=== PATIENT | male | born 1965 | race African-American/Black ===

== ENCOUNTER 2016-12-07 22:21 | Emergency (ER) | payer OTHER ==
[~2016-12-07] VITALS: Ht 172.7 cm; Wt 80.0 kg
[~2016-12-07 22:21] MED LIST: OMEP20TA PO; TAB-TAB PO
[2016-12-07 23:34] VITALS: BP 123/88; PULSE 61; RESP 18; TEMP 97.8; O2SAT 100
--- NOTE | 2016-12-08 02:22 | PD ---
HPI Chief Complaint: Pain: Acute or Chronic Time Seen by Provider: 02:13 Travel History International Travel<30 days: No Contact w/Intl Traveler<30days: No Traveled to known affect area: No History of Present Illness HPI The patient is a 50-year-old male who complains of pain from his left lumbosacral area that radiates to the top of the knee for about 1-1/2 weeks. He went to the [facility] urgent care center and was given Motrin and a muscle relaxant, likely Robaxin, but it did not help. He is on his feet all day at work, he works maintenance. He denies any bladder or bowel dysfunction he denies any numbness or weakness of his left leg. 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) Patient Takes Glucophage: No Diminished Hearing: No Tetanus Vaccination: < 5 Years Influenza Vaccination: No Past Surgical History Surgical History: No Previous Surgery Social History Alcohol Use: Yes (OCCASIONALLY) Tobacco Use: No Substance Use: No Allergies-Medications (Allergen,Severity, Reaction): Coded Allergies: Sulfa (Verified Allergy, Severe, swollen tongue, 05/14/13) Reported Meds & Prescriptions Reported Meds & Active Scripts Active Lortab (Hydrocodone-Acetaminophen) 5-325 Mg Tab 1 Tab PO Q6H PRN Flexeril (Cyclobenzaprine HCl) 10 Mg Tab 10 Mg PO TID Reported Multivitamin (Multivitamins) 1 Tab Tab 1 Tab PO DAILY Review of Systems Except as stated in HPI: all other systems reviewed are Neg Physical Exam Narrative GENERAL: The patient is alert, oriented 3 and slight apparent distress with his left leg/back pain. His vital signs are normal. SKIN: Warm and dry. HEAD: Atraumatic. Normocephalic. EYES: Pupils equal and round. No scleral icterus. No injection or drainage. ENT: No nasal bleeding or discharge. Mucous membranes pink and moist. NECK: Trachea midline. No JVD. CARDIOVASCULAR: Regular rate and rhythm. No murmur appreciated. RESPIRATORY: No accessory muscle use. Clear to auscultation. Breath sounds equal bilaterally. GASTROINTESTINAL: Abdomen soft, non-tender, nondistended. Hepatic and splenic margins not palpable. MUSCULOSKELETAL: No obvious deformities. No clubbing. No cyanosis. No edema. Straight leg raising is normal, deep tendon reflexes are +2 bilaterally both patella and Achilles and pinprick is normal. No muscle wasting is seen. NEUROLOGICAL: Awake and alert. No obvious cranial nerve deficits. Motor grossly within normal limits. Normal speech. PSYCHIATRIC: Appropriate mood and affect; insight and judgment normal. Data Data Last Documented VS Vital Signs Date Time Temp Pulse Resp B/P Pulse Ox O2 Delivery O2 Flow Rate FiO2 12/08/16 03:31 64 18 122/82 99 Room Air 12/07/16 23:34 97.8 Orders Spine, Lumbar Comp W/Obliq (12/08/16 02:22) Ketorolac Inj (Toradol Inj) (12/08/16 02:30) Promethazine Inj (Phenergan Inj) (12/08/16 02:30) MDM Medical Decision Making Medical Screen Exam Complete: Yes Emergency Medical Condition: Yes Medical Record Reviewed: Yes Interpretation(s) X-rays the lumbar spine show mild lower lumbar degenerative changes but no fracture or subluxation. Differential Diagnosis Lumbar radiculopathy, herniated nucleus pulposus, acute lumbar strain, arthritis left hip Narrative Course The patient has lumbar radiculopathy. His pain appears to be coming from the back and radiating down to his left knee. He needs rest but he does not want a work excuse. He wants to work anyway. He is to follow-up with his primary care physician. He will be given Lortab and Flexeril. He should not drink alcohol or drive on either medication. Diagnosis Primary Impression: Lumbar radiculopathy Additional Instructions: You will need to follow-up with your primary care physician. Hopefully he can see him next week. Do not drink alcohol or drive on the Flexeril or Lortab 5. Med/Other Pt SpecificInfo: Prescription(s) given Scripts Hydrocodone-Acetaminophen (Lortab)5-325 Mg Tab1 Tab PO Q6H PRN (PAIN) #30 TAB Ref 0 Prov:Omari Hines MD 12/08/16 Cyclobenzaprine (Flexeril)10 Mg Tab10 Mg PO TID #30 TAB Ref 0 Prov:Omari Hines MD 12/08/16 Disposition: 01 DISCHARGE HOME Condition: Stable Omari Hines MD Dec 08, 2016 02:22
[2016-12-08] MEDS ORDERED: KETOROLAC TROMETHAMINE 60 MG/2 ML (IM) VIAL IM ONE (02:30)
[2016-12-08] MEDS ORDERED: PROMETHAZINE INJ 25 MG/ML VIAL IM ONE (02:30)
[2016-12-08] MEDS ORDERED: CYCL1TAB29 PO (02:36)
[2016-12-08] MEDS ORDERED: HYDR-3533 PO (02:36)
--- NOTE | 2016-12-08 03:19 | RADHPO ---
EXAM DATE/TIME: 12/08/2016 02:32 [facility] COMPARISON: No previous studies available for comparison. INDICATIONS : Lumbar spine pain that is irradiating into left hip. MEDICAL HISTORY : None. SURGICAL HISTORY : None. ENCOUNTER: Initial ACUITY: 1 week PAIN SCORE: 5/10 LOCATION: Bilateral lumbar spine FINDINGS: No fracture or subluxation of the lumbar spine. Vertebral bodies have normal height. Mild disc space narrowing and mild bilateral facet osteoarthritis seen at L4/L5 and L5/S1. CONCLUSION: Mild lower lumbar degenerative changes. No fracture or subluxation. Noble Martínez MD on December 08, 2016 at 3:16 Board Certified Radiologist. This report was verified electronically.
[2016-12-08 03:31] VITALS: BP 122/82; PULSE 64; RESP 18; O2SAT 99
== END 2016-12-08 03:47 | disposition home or self-care (01) ==
LOC: PHED 22:21
DX: M54.16 Radiculopathy, lumbar region (principal); Z79.899 Other long term (current) drug therapy; E11.9 Type 2 diabetes mellitus without complications
CPT/HCPCS: 72110; 96372; 99283; J1885; J2550

== ENCOUNTER 2017-11-27 17:38 | Emergency (ER) | payer OTHER ==
[~2017-11-27] VITALS: Ht 172.7 cm; Wt 78.0 kg
[~2017-11-27 17:38] MED LIST changes: +CYCL10TA PO; +HYDR-3533 PO; -OMEP20TA PO
[2017-11-27 17:46] VITALS: BP 147/96; PULSE 72; RESP 16; TEMP 98.7; O2SAT 99
--- NOTE | 2017-11-27 18:27 | PD ---
HPI Chief Complaint: chest pain Time Seen by Provider: 18:17 Travel History International Travel<30 days: No Contact w/Intl Traveler<30days: No Traveled to known affect area: No History of Present Illness HPI 51yo M with PMH of gastritis and pancreatitis here with c/o midsternal chest pain for 2 days. Said it starts epigastric region and is burning and radiates up mid chest. Feels like his reflux but took over the counter medication and it did not help. [place] warm but no documented fever. Denies any sob, n/v, abdominal pain, dysuria, hematuria, weakness or numbness. 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) Diminished Hearing: No Social History Alcohol Use: Yes (OCCASIONALLY) Tobacco Use: No Substance Use: No Allergies-Medications (Allergen,Severity, Reaction): Coded Allergies: Sulfa (Sulfonamide Antibiotics) (Unverified Allergy, Severe, swollen tongue, 11/27/17) Reported Meds & Prescriptions Reported Meds & Active Scripts Active Lortab (Hydrocodone-Acetaminophen) 5-325 Mg Tab 1 Tab PO Q6H PRN Flexeril (Cyclobenzaprine HCl) 10 Mg Tab 10 Mg PO TID Reported Multivitamin (Multivitamins) 1 Tab Tab 1 Tab PO DAILY Review of Systems Except as stated in HPI: all other systems reviewed are Neg Physical Exam Narrative GENERAL: 51yo M not in distress. SKIN: Focused skin assessment warm/dry. HEAD: Atraumatic. Normocephalic. EYES: Pupils equal and round. No scleral icterus. No injection or drainage. ENT: No nasal bleeding or discharge. Mucous membranes pink and moist. NECK: Trachea midline. No JVD. CARDIOVASCULAR: Regular rate and rhythm. No murmur appreciated. RESPIRATORY: No accessory muscle use. Clear to auscultation. Breath sounds equal bilaterally. GASTROINTESTINAL: Abdomen soft, non-tender, nondistended. No rebound tenderness or guarding. MUSCULOSKELETAL: No obvious deformities. No clubbing. No cyanosis. No edema. NEUROLOGICAL: Awake and alert. No obvious cranial nerve deficits. Motor grossly within normal limits. Normal speech. PSYCHIATRIC: Appropriate mood and affect; insight and judgment normal. Data Data Last Documented VS Vital Signs Date Time Temp Pulse Resp B/P (MAP) Pulse Ox O2 Delivery O2 Flow Rate FiO2 11/27/17 19:02 14 11/27/17 18:41 69 140/93 (109) 98 Room Air 11/27/17 17:46 98.7 Orders Orders Electrocardiogram (11/27/17 18:24) Basic Metabolic Panel (Bmp) (11/27/17 18:24) Complete Blood Count With Diff (11/27/17 18:24) Magnesium (Mg) (11/27/17 18:24) Prothrombin Time / Inr (Pt) (11/27/17 18:24) Act Partial Throm Time (Ptt) (11/27/17 18:24) Troponin I (11/27/17 18:24) Chest, Single Ap (11/27/17 18:24) Pantoprazole (Protonix) (11/27/17 18:30) Lipase (11/27/17 18:24) Al-Mag Hy-Si 40-40-4 Mg/Ml Liq (Mag-Al P (11/27/17 19:45) Lidocaine 2% Viscous (Xylocaine 2% Visco (11/27/17 19:45) Labs Laboratory Tests Test 11/27/17 18:48 White Blood Count 6.0 TH/MM3 Red Blood Count 5.56 MIL/MM3 Hemoglobin 13.6 GM/DL Hematocrit 43.7 % Mean Corpuscular Volume 78.5 FL Mean Corpuscular Hemoglobin 24.4 PG Mean Corpuscular Hemoglobin Concent 31.0 % Red Cell Distribution Width 13.5 % Platelet Count 357 TH/MM3 Mean Platelet Volume 7.3 FL Neutrophils (%) (Auto) 52.3 % Lymphocytes (%) (Auto) 36.4 % Monocytes (%) (Auto) 10.3 % Eosinophils (%) (Auto) 0.6 % Basophils (%) (Auto) 0.4 % Neutrophils # (Auto) 3.2 TH/MM3 Lymphocytes # (Auto) 2.2 TH/MM3 Monocytes # (Auto) 0.6 TH/MM3 Eosinophils # (Auto) 0.0 TH/MM3 Basophils # (Auto) 0.0 TH/MM3 CBC Comment AUTO DIFF Differential Comment AUTO DIFF CONFIRMED Platelet Estimate NORMAL Platelet Morphology Comment NORMAL Prothrombin Time 10.7 SEC Prothromb Time International Ratio 1.1 RATIO Activated Partial Thromboplast Time 23.5 SEC Blood Urea Nitrogen 17 MG/DL Creatinine 0.96 MG/DL Random Glucose 110 MG/DL Calcium Level 9.3 MG/DL Magnesium Level 2.2 MG/DL Sodium Level 136 MEQ/L Potassium Level 3.9 MEQ/L Chloride Level 102 MEQ/L Carbon Dioxide Level 30.9 MEQ/L Anion Gap 3 MEQ/L Estimat Glomerular Filtration Rate 100 ML/MIN Troponin I LESS THAN 0.02 NG/ML Lipase 278 U/L [facility] Medical Decision Making Medical Screen Exam Complete: Yes Emergency Medical Condition: Yes Interpretation(s) EKG: NSR 70bpm. Normal axis. No significant ST segment elevation or depression Differential Diagnosis GERD vs. atypical chest pain vs. peptic ulcer disease vs. gastritis Narrative Course 51yo M with epigastric, burning pain that radiates up chest. Really sounds more GI than cardiac. Labs reviewed, no leukocytosis. H/H normal. Troponin negative. Lipase normal. CXR negative. Pt given protonix, and GI cocktail. Pt reevaluated and said pain had completely resolved. It had felt like his gastritis. Pt has GI doctor to follow up with. Do not think this is cardiac. Return precautions given. Diagnosis Primary Impression: Gastritis Qualified Codes: K29.00 - Acute gastritis without bleeding Patient Instructions: General Instructions Departure Forms: Tests/Procedures Additional Instructions: Please follow up with your GI physician in 2-3 days. Return to the ED if symptoms worsen. Med/Other Pt SpecificInfo: Prescription(s) given Scripts Omeprazole (Omeprazole) 40 Mg Cap 40 MG PO DAILY, #15 CAP 0 Refills Prov: Sita Braun 11/27/17 Disposition: 01 DISCHARGE HOME Condition: Stable BraunLashawn maciaschris COLON Nov 27, 2017 18:27
[2017-11-27] MEDS ORDERED: PANTOPRAZOLE SOD 40 MG DELAYED RELEASE TAB PO ONE (18:30)
[2017-11-27 18:41] VITALS: BP 140/93; PULSE 69; RESP 18; O2SAT 98
--- NOTE | 2017-11-27 18:55 | RADRPT ---
EXAM DATE/TIME: 11/27/2017 18:27 [facility] COMPARISON: No previous studies available for comparison. INDICATIONS : Chest pain. MEDICAL HISTORY : Gastroesophageal reflux disease. SURGICAL HISTORY : None. ENCOUNTER: Initial ACUITY: 1 day PAIN SCORE: 5/10 LOCATION: chest FINDINGS: A single view of the chest demonstrates the lungs to be symmetrically aerated without evidence of mas s, infiltrate or effusion. The cardiomediastinal contours are unremarkable. Osseous structures are intact. CONCLUSION: No acute disease. Gautam Fallon MD on November 27, 2017 at 18:52 Board Certified Radiologist. This report was verified electronically.
[2017-11-27 18:57] LABS: AUTOMATED NEUTROPHIL # 3.2 TH/MM3 (1.8-7.7); BASOPHIL % 0.4 % (0.0-2.0); EOSINOPHIL % 0.6 % (0.0-4.0); HEMATOCRIT 43.7 % (39.0-51.0); HEMOGLOBIN 13.6 GM/DL (13.0-17.0); LYMPH % 36.4 % (9.0-44.0); LYMPHOCYTE # 2.2 TH/MM3 (1.0-4.8); MEAN CELL VOLUME 78.5 FL (80.0-100.0); MEAN CORPUSCULAR HEMOGLOBIN 24.4 PG (27.0-34.0); MEAN PLATELET VOLUME 7.3 FL (7.0-11.0); MONO % 10.3 % (0.0-8.0); MONOCYTE # 0.6 TH/MM3 (0-0.9); NEUT % 52.3 % (16.0-70.0); PLATELET COUNT 357 TH/MM3 (150-450); RED BLOOD COUNT 5.56 MIL/MM3 (4.50-5.90); RED CELL DISTRIBUTION WIDTH 13.5 % (11.6-17.2)
[2017-11-27 19:02] LABS: CHLORIDE 102 MEQ/L (98-107); SODIUM (NA) 136 MEQ/L (136-145)
[2017-11-27 19:04] LABS: CALCIUM 9.3 MG/DL (8.5-10.1)
[2017-11-27 19:05] LABS: BICARBONATE 30.9 MEQ/L (21.0-32.0); BLOOD UREA NITROGEN 17 MG/DL (7-18); GLUCOSE,RANDOM 110 MG/DL (74-106); MAGNESIUM 2.2 MG/DL (1.5-2.5)
[2017-11-27 19:08] LABS: CREATININE 0.96 MG/DL (0.60-1.30); GLOMERULAR FILTRATION RATE 100 ML/MIN (>89); INTERNATIONAL NORMALIZED RATIO 1.1 RATIO; PROTHROMBIN TIME - PATIENT 10.7 SEC (9.8-11.6)
[2017-11-27 19:13] LABS: TROPONIN I LESS THAN 0.02 NG/ML (0.02-0.05)
[2017-11-27 19:45] VITALS: BP 119/76; PULSE 68; RESP 16; O2SAT 98
[2017-11-27] MEDS ORDERED: ALUMINUM/MAGNESIUM/SIMETH 30 ML CUP PO ONE (19:45)
[2017-11-27] MEDS ORDERED: LIDOCAINE VISCOUS 2% SOLN 15 ML UDC PO ONE (19:45)
[2017-11-27] MEDS ORDERED: OMEP40CA2 PO (20:27)
[2017-11-27 20:40] VITALS: BP 125/79; PULSE 68; RESP 16; O2SAT 98
--- NOTE | 2017-11-28 05:23 | EKG ---
Date Performed: 11/27/2017 Time Performed: 18:33:47 PTAGE: 51 years EKG: Baseline artifact present Sinus rhythm PROBABLE EARLY REPOLARIZATION BORDERLINE ECG NO PREVIOUS TRACING DOCTOR: Daniel Bryant Interpretating Date/Time 11/28/2017 05:21:29
== END 2017-11-27 21:08 | disposition home or self-care (01) ==
LOC: PHED 17:38
DX: K29.00 Acute gastritis without bleeding (principal); Z79.899 Other long term (current) drug therapy
CPT/HCPCS: 71045; 80048; 83690; 83735; 84484; 85025; 85610; 85730; 93005

== ENCOUNTER 2018-02-22 20:44 | Emergency (ER) | payer OTHER ==
[~2018-02-22] VITALS: Ht 172.7 cm; Wt 77.8 kg
[~2018-02-22 20:44] MED LIST changes: +OMEP40CA2 PO
[2018-02-22 20:49] VITALS: BP 140/87; PULSE 66; RESP 18; TEMP 98.2; O2SAT 98
[2018-02-22] MEDS ORDERED: SODIUM CHLOR 0.9% 1000 ML INJ 1,000 ML IV SCH (21:05)
--- NOTE | 2018-02-22 21:09 | PD ---
HPI Chief Complaint: Cold / Flu Symptoms Time Seen by Provider: 21:00 Travel History International Travel<30 days: No Contact w/Intl Traveler<30days: No Traveled to known affect area: No History of Present Illness HPI The patient is a 52-year-old male that complains of fever, nausea for 2 weeks. He does not smoke and does not drink any significant amount of alcohol. He has a history of gastritis in the past. It all started when he had colonoscopy in EGD done several weeks ago. He denies any vomiting or diarrhea. He denies any abdominal pain. The patient works 2 jobs. His states that he works too hard. 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) Diminished Hearing: No GERD: Yes Social History Alcohol Use: Yes (OCCASIONALLY) Tobacco Use: No Substance Use: No Allergies-Medications (Allergen,Severity, Reaction): Coded Allergies: Sulfa (Sulfonamide Antibiotics) (Unverified Allergy, Severe, swollen tongue, 11/27/17) Reported Meds & Prescriptions Reported Meds & Active Scripts Active Omeprazole 40 Mg Cap 40 Mg PO DAILY Lortab (Hydrocodone-Acetaminophen) 5-325 Mg Tab 1 Tab PO Q6H PRN Flexeril (Cyclobenzaprine HCl) 10 Mg Tab 10 Mg PO TID Reported Multivitamin (Multivitamins) 1 Tab Tab 1 Tab PO DAILY Review of Systems Except as stated in HPI: all other systems reviewed are Neg Physical Exam Narrative GENERAL: The patient is alert, oriented 3 in no apparent distress except for the nausea. SKIN: Focused skin assessment warm/dry. HEAD: Atraumatic. Normocephalic. EYES: Pupils equal and round. No scleral icterus. No injection or drainage. ENT: No nasal bleeding or discharge. Mucous membranes pink and moist. NECK: Trachea midline. No JVD. CARDIOVASCULAR: Regular rate and rhythm. No murmur appreciated. RESPIRATORY: No accessory muscle use. Clear to auscultation. Breath sounds equal bilaterally. GASTROINTESTINAL: Abdomen soft, non-tender, nondistended. Hepatic and splenic margins not palpable. No guarding or rebound is present. MUSCULOSKELETAL: No obvious deformities. No clubbing. No cyanosis. No edema. NEUROLOGICAL: Awake and alert. No obvious cranial nerve deficits. Motor grossly within normal limits. Normal speech. PSYCHIATRIC: Appropriate mood and affect; insight and judgment normal. Data Data Last Documented VS Vital Signs Date Time Temp Pulse Resp B/P (MAP) Pulse Ox O2 Delivery O2 Flow Rate FiO2 02/22/18 21:05 99 02/22/18 20:49 98.2 66 18 140/87 (104) Orders Orders Comprehensive Metabolic Panel (02/22/18 21:05) Lipase (02/22/18 21:05) Urinalysis - C+S If Indicated (02/22/18 21:05) Iv Access Insert/Monitor (02/22/18 21:05) Ecg Monitoring (02/22/18 21:05) Oximetry (02/22/18 21:05) Ondansetron Inj (Zofran Inj) (02/22/18 21:15) Sodium Chlor 0.9% 1000 Ml Inj (Ns 1000 M (02/22/18 21:05) Sodium Chloride 0.9% Flush (Ns Flush) (02/22/18 21:15) Complete Blood Count With Diff (02/22/18 22:19) Influenzae A/B Antigen (02/22/18 22:19) Sodium Chlor 0.9% 1000 Ml Inj (Ns 1000 M (02/22/18 22:30) Labs Laboratory Tests Test 02/22/18 21:20 02/22/18 21:34 02/22/18 22:40 Urine Color YELLOW Urine Turbidity CLEAR Urine pH 6.5 Urine Specific [place] 1.015 Urine Protein NEG mg/dL Urine Glucose (UA) NEG mg/dL Urine Ketones NEG mg/dL Urine Occult Blood NEG Urine Nitrite NEG Urine Bilirubin NEG Urine Urobilinogen 0.2 MG/DL Urine Leukocyte Esterase NEG Urine RBC 0-3 /hpf Urine WBC 0-2 /hpf Urine Squamous Epithelial Cells 0-5 /hpf Microscopic Urinalysis Comment CULT NOT INDICATED Blood Urea Nitrogen 12 MG/DL Creatinine 0.88 MG/DL Random Glucose 114 MG/DL Total Protein 8.0 GM/DL Albumin 3.8 GM/DL Calcium Level 9.4 MG/DL Alkaline Phosphatase 79 U/L Aspartate Amino Transf (AST/SGOT) 24 U/L Alanine Aminotransferase (ALT/SGPT) 56 U/L Total Bilirubin 0.5 MG/DL Sodium Level 140 MEQ/L Potassium Level 3.8 MEQ/L Chloride Level 107 MEQ/L Carbon Dioxide Level 29.9 MEQ/L Anion Gap 3 MEQ/L Estimat Glomerular Filtration Rate 111 ML/MIN Lipase 249 U/L White Blood Count 5.9 TH/MM3 Red Blood Count 5.05 MIL/MM3 Hemoglobin 12.6 GM/DL Hematocrit 39.5 % Mean Corpuscular Volume 78.2 FL Mean Corpuscular Hemoglobin 24.8 PG Mean Corpuscular Hemoglobin Concent 31.8 % Red Cell Distribution Width 14.6 % Platelet Count 302 TH/MM3 Mean Platelet Volume 8.3 FL Neutrophils (%) (Auto) 43.4 % Lymphocytes (%) (Auto) 43.1 % Monocytes (%) (Auto) 10.5 % Eosinophils (%) (Auto) 1.8 % Basophils (%) (Auto) 1.2 % Neutrophils # (Auto) 2.6 TH/MM3 Lymphocytes # (Auto) 2.5 TH/MM3 Monocytes # (Auto) 0.6 TH/MM3 Eosinophils # (Auto) 0.1 TH/MM3 Basophils # (Auto) 0.1 TH/MM3 CBC Comment AUTO DIFF MDM Medical Decision Making Medical Screen Exam Complete: Yes Emergency Medical Condition: Yes Medical Record Reviewed: Yes Interpretation(s) The CBC Shows a hemoglobin of 12.6 and 10.5% mononuclear cells. The complete metabolic profile is normal and the lipase is normal. The urinalysis is normal and cultures not indicated. Differential Diagnosis Gastritis, pancreatitis, electrolyte disorder, dehydration, colitis, flu syndrome, nonspecific viral syndrome Narrative Course The patient likely has a nonspecific viral syndrome. The white count is on the low side suggesting viral etiology. Additional Instructions: As we discussed, I believe this is a viral syndrome and rest and time would be the treatment. Also, make sure you increase your liquid intake and stay well- hydrated. Med/Other Pt SpecificInfo: No Change to Meds Disposition: 01 DISCHARGE HOME Condition: Stable Omari Hines MD Feb 22, 2018 21:09
[2018-02-22] MEDS ORDERED: ONDANSETRON HCL 4 MG/2 ML VIAL IVP ONE (21:15)
[2018-02-22] MEDS ORDERED: SODIUM CHLORIDE 0.9% FLUSH 10 ML FLUSH IV FLUSH PRN (21:15)
[2018-02-22 21:35] LABS: BILIRUBIN, URINE NEG (NEG); BLOOD, URINE NEG (NEG); GLUCOSE,URINE NEG (NEG); KETONE, URINE NEG (NEG); NITRITE,URINE NEG (NEG); PH, URINE 6.5 (5.0-8.5); URINE COLOR YELLOW (YELLW/STRAW); URINE LEUKOCYTE ESTERASE NEG (NEG)
[2018-02-22 21:49] LABS: CHLORIDE 107 MEQ/L (98-107); SODIUM (NA) 140 MEQ/L (136-145)
[2018-02-22 21:53] LABS: ALBUMIN 3.8 GM/DL (3.4-5.0); BICARBONATE 29.9 MEQ/L (21.0-32.0); BLOOD UREA NITROGEN 12 MG/DL (7-18); CALCIUM 9.4 MG/DL (8.5-10.1); GLUCOSE,RANDOM 114 MG/DL (74-106)
[2018-02-22 21:56] LABS: ALT (GPT) 56 U/L (12-78); AST (GOT) 24 U/L (15-37); CREATININE 0.88 MG/DL (0.60-1.30); GLOMERULAR FILTRATION RATE 111 ML/MIN (>89)
[2018-02-22 21:58] LABS: TOTAL BILIRUBIN ADULT 0.5 MG/DL (0.2-1.0)
[2018-02-22 21:59] LABS: ALKALINE PHOSPHATASE 79 U/L (45-117)
[2018-02-22 22:04] LABS: RBC, URINE 0-3 /hpf (0-3); SQUAMOUS EPITHELIAL CELL URINE 0-5 /hpf (0-5); WBC, URINE 0-2 /hpf (0-5)
[2018-02-22] MEDS: SODIUM CHLOR 0.9% 1000 ML INJ 1,000 ML IV SCH ×2 (22:30→23:00)
[2018-02-22 23:05] VITALS: BP 152/78; PULSE 78; RESP 16; O2SAT 100
[2018-02-23 00:03] LABS: AUTOMATED NEUTROPHIL # 2.6 TH/MM3 (1.8-7.7); BASOPHIL # 0.1 TH/MM3 (0-0.2); BASOPHIL % 1.2 % (0.0-2.0); EOSINOPHIL # 0.1 TH/MM3 (0-0.4); EOSINOPHIL % 1.8 % (0.0-4.0); HEMATOCRIT 39.5 % (39.0-51.0); HEMOGLOBIN 12.6 GM/DL (13.0-17.0); LYMPH % 43.1 % (9.0-44.0); LYMPHOCYTE # 2.5 TH/MM3 (1.0-4.8); MEAN CELL VOLUME 78.2 FL (80.0-100.0); MEAN CORPUSCULAR HEMOGLOBIN 24.8 PG (27.0-34.0); MEAN CORPUSCULAR HGB CONC 31.8 % (32.0-36.0); MEAN PLATELET VOLUME 8.3 FL (7.0-11.0); MONO % 10.5 % (0.0-8.0); MONOCYTE # 0.6 TH/MM3 (0-0.9); NEUT % 43.4 % (16.0-70.0); PLATELET COUNT 302 TH/MM3 (150-450); RED BLOOD COUNT 5.05 MIL/MM3 (4.50-5.90); RED CELL DISTRIBUTION WIDTH 14.6 % (11.6-17.2); WHITE BLOOD COUNT 5.9 TH/MM3 (4.0-11.0)
[2018-02-23 00:44] LABS: OVALOCYTES 1+ (NORMAL)
[2018-02-23 00:51] VITALS: BP 138/81
== END 2018-02-23 00:53 | disposition home or self-care (01) ==
LOC: PHED 20:44
DX: B34.9 Viral infection, unspecified (principal); E11.9 Type 2 diabetes mellitus without complications; K21.9 Gastro-esophageal reflux disease without esophagitis
CPT/HCPCS: 80053; 81001; 83690; 85025; 87804; 96361; 96374; 99284; J2405; J7030